=== PATIENT | male | born 1980 | race Caucasian/White ===

== ENCOUNTER → 2020-11-15 | Outpatient (CLI) | payer OTHER | END | disposition home or self-care (01) | LOC: US 11-14 16:00 | PROVIDERS: ATTEND Physician Assistant Medical | DX: L03.115 Cellulitis of right lower limb (principal) ==

== ENCOUNTER → 2021-07-10 | Outpatient (CLI) | payer OTHER | END | disposition home or self-care (01) | LOC: RESCLI 00:48 | PROVIDERS: ATTEND Emergency Medicine | DX: E10.9 Type 1 diabetes mellitus without complications (principal); E78.2 Mixed hyperlipidemia; E03.9 Hypothyroidism, unspecified; Z79.899 Other long term (current) drug therapy ==

== ENCOUNTER → 2021-08-14 | Outpatient (CLI) | payer OTHER | END | disposition home or self-care (01) | LOC: RESCLI 01:14 | PROVIDERS: ATTEND Internal Medicine | DX: E10.9 Type 1 diabetes mellitus without complications (principal); E78.2 Mixed hyperlipidemia; E03.9 Hypothyroidism, unspecified; Z79.899 Other long term (current) drug therapy; Z79.4 Long term (current) use of insulin ==

== ENCOUNTER → 2022-04-03 | Outpatient (CLI) | payer OTHER ==
[2022-04-03 07:35] LABS: BASO # 0.1 10*3/uL (0.0-0.1); BASO % 1.3 % (0.0-1.0); EOS # 0.4 10*3/uL (0.0-0.4); EOS % 7.7 % (1.0-4.0); HEMATOCRIT 43.7 % (42.0-52.0); LYMPH # 2.1 10*3/uL (1.3-4.4); LYMPH % 42.8 % (27.0-41.0); MEAN CELL VOLUME 91.2 fl (80.0-94.0); MEAN CORPUSCULAR HGB 30.5 pg (27.0-31.0); MEAN CORPUSCULAR HGB CONC 33.4 g/dl (33.0-37.0); MEAN PLATELET VOLUME 9.8 fl (9.6-12.3); MONO # 0.6 10*3/uL (0.1-1.0); MONO % 11.5 % (3.0-9.0); NEUT # 1.8 10*3/uL (2.3-7.9); NEUT % 36.5 % (47.0-73.0); PLATELET COUNT AUTOMATED 231 10*3/uL (130-400); RED BLOOD COUNT 4.79 10*6/uL (4.50-5.90); RED CELL DISTRI WIDTH 12.9 % (0-14.5); WHITE BLOOD COUNT 4.8 10*3/uL (4.8-10.8)
[2022-04-03 07:54] LABS: BUN 22 mg/dl (7-24); CHLORIDE 108 mmol/L (98-107); POTASSIUM 4.5 mmol/L (3.5-5.1); SODIUM 142 mmol/L (136-145)
[2022-04-03 08:07] LABS: ALKALINE PHOSPHATASE 91 U/L (45-117); CHOLESTEROL 227 mg/dL (<200); CREATININE 0.99 mg/dL (0.70-1.30); LDL CHOLESTEROL 150 mg/dL (9-159); SGOT/AST 22 IU/L (3-35); SGPT/ALT 21 U/L (12-78); TOTAL PROTEIN 7.1 gm/dL (6.4-8.2); TRIGLYCERIDES 78 mg/dl (<150)
[2022-04-03 09:05] LABS: FREE T4 0.83 ng/dl (0.76-1.46)
[2022-04-04 09:08] LABS: CREATININE,URINE 151.5 mg/dL (Not Estab.)
== END | disposition home or self-care (01) ==
LOC: LAB 07:20
PROVIDERS: ATTEND Internal Medicine
DX: E10.9 Type 1 diabetes mellitus without complications (principal); E78.2 Mixed hyperlipidemia; I10 Essential (primary) hypertension

== ENCOUNTER → 2022-04-09 | Outpatient (CLI) | payer OTHER | END | disposition home or self-care (01) | LOC: RESCLI 14:28 | PROVIDERS: ATTEND Internal Medicine | DX: E11.9 Type 2 diabetes mellitus without complications (principal); Z79.899 Other long term (current) drug therapy ==

== ENCOUNTER → 2022-04-16 | Outpatient (CLI) | payer OTHER | END | disposition home or self-care (01) | LOC: RESCLI 05:17 | PROVIDERS: ATTEND Internal Medicine | DX: E10.9 Type 1 diabetes mellitus without complications (principal); E11.9 Type 2 diabetes mellitus without complications; E78.5 Hyperlipidemia, unspecified; I10 Essential (primary) hypertension; Z79.899 Other long term (current) drug therapy ==

== ENCOUNTER → 2022-04-23 | Outpatient (CLI) | payer OTHER | END | disposition home or self-care (01) | LOC: RESCLI 00:21 | PROVIDERS: ATTEND Internal Medicine | DX: E10.9 Type 1 diabetes mellitus without complications (principal); I10 Essential (primary) hypertension; E03.9 Hypothyroidism, unspecified; E78.5 Hyperlipidemia, unspecified; Z79.899 Other long term (current) drug therapy ==

== ENCOUNTER → 2022-08-23 | Outpatient (CLI) | payer OTHER | LOC: LAB 11:29 | PROVIDERS: ATTEND Family Medicine | DX: E78.2 Mixed hyperlipidemia (principal) ==

== ENCOUNTER → 2025-02-25 | Outpatient (CLI) | payer OTHER ==
[2025-02-25 11:27] LABS: BASO # 0.1 10*3/uL (0.0-0.1); BASO % 1.4 % (0.0-1.0); EOS # 0.3 10*3/uL (0.0-0.4); EOS % 5.2 % (1.0-4.0); HEMATOCRIT 41.1 % (42.0-52.0); MEAN CELL VOLUME 88.4 fl (80.0-94.0); MEAN CORPUSCULAR HGB 29.7 pg (27.0-31.0); MEAN CORPUSCULAR HGB CONC 33.6 g/dl (33.0-37.0); MEAN PLATELET VOLUME 10.5 fl (9.6-12.3); MONO # 0.6 10*3/uL (0.1-1.0); MONO % 11.6 % (3.0-9.0); NEUT # 2.6 10*3/uL (2.3-7.9); NEUT % 51.5 % (47.0-73.0); PLATELET COUNT AUTOMATED 224 10*3/uL (130-400); RED BLOOD COUNT 4.65 10*6/uL (4.50-5.90); RED CELL DISTRI WIDTH 12.7 % (0-14.5)
[2025-02-25 11:40] LABS: ALKALINE PHOSPHATASE 79 U/L (46-116); BUN 17 mg/dl (9-23); CHLORIDE 105 mmol/L (98-107); CHOLESTEROL 192 mg/dL (<200); LDL CHOLESTEROL 135 mg/dL (9-159); POTASSIUM 4.4 mmol/L (3.4-5.1); SGPT/ALT 18 U/L (5-49); TOTAL PROTEIN 6.9 gm/dL (6.0-8.0); TRIGLYCERIDES 69 mg/dl (<150)
== END | disposition home or self-care (01) ==
LOC: RHCWE 09:17
PROVIDERS: ATTEND Nurse Practitioner Family
DX: I10 Essential (primary) hypertension (principal); E10.9 Type 1 diabetes mellitus without complications; E03.9 Hypothyroidism, unspecified; Z76.89 Persons encountering health services in other specified circumstances